=== PATIENT | female | born 1950 | race Caucasian/White ===

== ENCOUNTER 2020-12-07 00:15 | Emergency (ER) | payer OTHER ==
[~2020-12-07] VITALS: Ht 157.5 cm; Wt 72.6 kg
[2020-12-07] MEDS ORDERED: SYNTHROID75 MCG (00:34)
[2020-12-07] MEDS ORDERED: LOSARTAN POTASS25 MG (00:36)
[2020-12-07] MEDS ORDERED: NORVASC5 MG (00:36)
[2020-12-07] MEDS ORDERED: TRAZODONE HCL150 MG (00:36)
== END 2020-12-07 04:24 | disposition home or self-care (01) ==
LOC: ER 00:15
DX: R07.89 Other chest pain (principal); R51.9 Headache, unspecified; I10 Essential (primary) hypertension